=== PATIENT | female | born 1975 | race Caucasian/White ===

== ENCOUNTER → 2018-11-08 15:22 | Outpatient (CLI) | payer BC, SELFPAY | PROVIDERS: PCP Family Medicine; Visit Provider Physician Assistant | DX: I47.2 Ventricular tachycardia (principal) | CPT/HCPCS: 93306 ==

== ENCOUNTER → 2018-11-29 14:50 | Outpatient (CLI) | payer BC, SELFPAY | PROVIDERS: PCP Family Medicine; Visit Provider Urology | DX: R40.0 Somnolence (principal); R06.83 Snoring; I47.2 Ventricular tachycardia; E66.09 Other obesity due to excess calories; Z68.31 Body mass index [BMI] 31.0-31.9, adult | CPT/HCPCS: 95806 ==

== ENCOUNTER → 2019-11-26 07:07 | Outpatient (CLI) | payer BC, SELFPAY ==
--- NOTE | 2019-11-26 | CA_ITS ---
APPROVED REPORT Exam: Pharmacologic Technologist: Norma Gomes, Ht: 5 ft 5 in Wt: 210 lbs BSA: 2.02 m2 HR: 75 bpm BP: 110/70 mmHg Indications: SOA, Chest pain Medical History Medications: Levothyroxine,,,,, HCTZ,,,,, Buspirone,,,,, Albuterol,,,,, MeLOXICAM,,,,, Cyclobenzaprine,,,,, TriaMterene,,,,, BisOPROL,,,,, Omepazole,,,,, VenALafaxine,,,,, Preqabalin,,,,, Stress Test Details Test: LEXISCAN HR Resting HR: 79 bpm Max Heart Rate (APMHR): 175 bpm Max HR Achieved: 104 bpm Target HR (85% APMHR): 148 bpm % of APMHR: 59 Recovery HR: 86 bpm BP Resting BP: 110/70 mmHg Max BP: 122/69 mmHg Recovery BP: 122.0/69.0 mmHg ECG Clinical Exercise duration: 04:00 min Highest Stage Achieved: Exercise capacity: 1.0 METs Stress ECG Conclusion Resting EKG: NSR, Normal Symptoms: Mild-moderate chest tightness, SOA, malaise Arrhythmais/Ectoy: None ST-T changes: No significant changes Conclusion: Unremarkable Lexiscan stress. Myoview images reported separately Test Summary REST . . . . . . . Resting REST 03:32 . . 79 . 110/ 70 . . Stage 1 . . . . . . . Myoview Injected Stage 1 01:00 . . 103 . . . . Stage 2 01:00 . . 101 . 121/ 69 . . Stage 3 01:00 . . 96 . 118/ 70 . . Stage 4 01:00 . . 93 . 119/ 67 . Stop exercise at 04:00 RECOVERY 01:00 . . 93 . . . . RECOVERY 02:00 . . 90 . 118/ 70 . . RECOVERY 03:00 . . 85 . 122/ 69 . . RECOVERY 03:19 . . 88 . 122/ 69 . . Electronically signed by : Neeraj Boudreaux, 11/27/2019 10:37:36
--- NOTE | 2019-11-26 07:07 | NM_ITS ---
APPROVED REPORT Exam: Nuclear Stress Test Indication: Chest pain, SOB, Former tobacco use, Family history Patient Location: Outpatient Stress Tech: Dimple Motta NM Tech:Nelsy Little, ARRT, RT (R)(N) Ht: 5 ft 5 in Wt: 210 lbs Bra Size: 38C HR: 75 bpm BP: 110/70 mmHg BSA: 2.02 m2 BMI: 34.9 History: Chest pain, SOB, Former tobacco use, Family history Procedure: Patient received a 0.4 mg of intravenous Lexiscan, resting heart rate 75 bpm, resting blood pressure 110/70 mmHg, with Lexiscan maximum heart rate achived was 101 bpm which is Less than 85 % of the maximum predicted heart rate and blood pressure was 121/69 mmHg. Electrocardiogram Resting electrocardiogram showed sinus rhythm, with Lexiscan there is less than 1.[address] segment depression noted from the baseline EKG. The EKG portion of the Lexiscan is nondiagnostic. Cardiac Stress and Resting SPECT Images: Cardiac Stress and Resting SPECT images were obtained using technetium 99m Myoview 31.2 mCi stress and 10.06 mCi at rest. Gated SPECT for the analysis of segmental wall motion and calculation of the ejection fraction also done. Cardiac stress and resting SPECT images show a mild fixed defect in the anterior wall with normal perfusion of the apex is likely secondary to soft tissue attenuation, no reversible ischemia seen. Computer derived ejection fraction is 65% with no regional wall motion abnormality, right ventricle is normal size and contractility. Conclusion: 1. The EKG portion of the Lexiscan Myoview is nondiagnostic. 2. No scintigraphic evidence of reversible ischemia seen, computer derived ejection fraction is 65% with no regional wall motion abnormality, right ventricle is normal size and contractility. 3. Likely normal Lexiscan Myoview study. Electronically signed by : Neeraj Boudreaux, 11/27/2019 10:41:34
--- NOTE | 2019-11-26 07:11 | CA_ITS ---
APPROVED REPORT EXAM: Comprehensive 2D, Doppler, and color-flow Echocardiogram District Manager: Shauna Pond RDCS Ht: 5 ft 6 in Wt: 210lbs BSA: 2.04 BP: 106/59 mmHg Indications: CP,SOA,PAF,HTN 2D Dimensions LVOT 2.03 cm (M/F) 1.5-2.5 M-Mode Dimensions RVDd 2.94 cm (0.9-2.6) LVDd 5.84 cm (3.5-5.7) LVDs 4.26 cm (3.5-5.7) IVSd 0.98 cm (0.6-1.1) PWd 0.68 cm (0.6-1.1) EF (Teich) 52.00% FS 27.10% EDV (Teich) 169.20 mL ESV (Teich) 81.30 mL LV Diastology E/A Ratio 1.17 Mitral Valve MV A Velocity 55.00 (40-130 cm/s) Left Ventricle Left atrium is mildly enlarged, left ventricle is normal size, there is no concentric left ventricular hypertrophy, visually estimated ejection fraction 55% with no regional wall motion abnormality, diastolic parameters are within normal range. Right Ventricle Right atrium and right ventricle are mildly enlarged with normal contractility. Aortic Valve Aortic valve is grossly normal, there is no aortic stenosis or aortic insufficiency. Mitral Valve Mitral valve is grossly normal, there is mild mitral regurgitation. Tricuspid Valve Tricuspid valve grossly normal, there is mild tricuspid regurgitation, tricuspid regurgitation jet velocity is inadequate for calculation of the right ventricular systolic pressure. Pulmonic Valve Pulmonic valve is poorly visualized. Great Vessels Aortic root is normal size. Pericardium No significant pericardial effusion noted. Conclusion 1. Mild biatrial enlargement, normal left ventricular size, visually estimated ejection fraction 55% with no regional wall motion abnormality, diastolic parameters are within normal range. 2. Mildly enlarged right ventricle with normal contractility. 3. Mild mitral and tricuspid regurgitation. 4. No significant pericardial effusion noted. Electronically signed by : Neeraj Boudreaux, 11/27/2019 11:46:01
--- NOTE | 2019-11-26 09:16 | HMH.ITSHM ---
Current Home Medications as stated by this patient Simran Lopez or applications sales representative. []OMEPRAZOLE EUTHYROX TRIAMT/HCTZ MELOXICAM BISOPROLOL BUSPIRONE CYCLOBENZAPR LYRICA VENLAFAXINE NITRO VENTOLIN VITAMINS
== END ==
PROVIDERS: PCP Nurse Practitioner Family; Visit Provider Nurse Practitioner Family
DX: R06.02 Shortness of breath (principal); R07.9 Chest pain, unspecified; R55 Syncope and collapse; I10 Essential (primary) hypertension; I47.2 Ventricular tachycardia; I48.0 Paroxysmal atrial fibrillation
CPT/HCPCS: 78452; 93017; 93306; A9502; J2785

== ENCOUNTER → 2020-03-03 14:56 | Outpatient (CLI) | payer BC, SELFPAY ==
--- NOTE | 2020-03-03 15:02 | XR_ITS ---
PROCEDURE: XR CHEST 2V CLINICAL HISTORY: chest pain COMPARISON: No exams were available for comparison FINDINGS: The cardiomediastinal silhouette and pulmonary vascularity are within normal limits. Loop recorder device is present. The lungs are clear. No acute bony abnormalities. IMPRESSION: No acute findings. Dictated by: Keith Palomo MD 03/03/2020 15:40 Keith Palomo MD in [place] 03/03/2020 15:40
== END ==
PROVIDERS: PCP Nurse Practitioner Family; Visit Provider Urology
DX: I10 Essential (primary) hypertension (principal); I47.2 Ventricular tachycardia; I48.0 Paroxysmal atrial fibrillation; R06.02 Shortness of breath; R07.9 Chest pain, unspecified; R79.89 Other specified abnormal findings of blood chemistry
CPT/HCPCS: 71046

== ENCOUNTER → 2021-04-05 13:32 | Outpatient (CLI) | payer BC, SELFPAY | PROVIDERS: Visit Provider Urology | DX: Z01.812 Encounter for preprocedural laboratory examination (principal); U07.1 COVID-19 | CPT/HCPCS: C9803; U0003; U0005 ==